=== PATIENT | male | born 1980 | race Caucasian/White ===

== ENCOUNTER 2017-05-08 19:03 | Emergency (ER) | payer OTHER ==
[~2017-05-08] VITALS: Ht 180.3 cm; Wt 127.0 kg
[~2017-05-08 19:03] MED LIST: AMOX1TAB11; HYDR-2758; HYDR-971 PO; LISI-338 PO; METH-37 PO; METH4TAB6; METO25TA4; METO25TA9 PO; NORT25CA; PRED20TA PO; SULF1TAB24 PO; TIZA4TAB; TRAZ50TA15 PO; WARF5TAB7; WARF7.5T48 PO
[2017-05-08 19:57] LABS: BASO # 0.1 x10^3/uL (0.0-0.2); BASO % 1 % (0-3); BILIRUBIN,URINE NEGATIVE (NEG); EOS % 1 % (0-3); GLUCOSE,URINE NEGATIVE (NEG); HEMATOCRIT 43.2 % (39.0-53.0); HEMOGLOBIN 14.7 g/dL (13.0-17.5); LYMPH # 2.4 x10^3/uL (1.0-4.8); LYMPH % 22 % (24-48); MEAN CORPUSCULAR HEMOGLOBIN 30 pg (25-35); MEAN CORPUSCULAR HGB CONC 34 g/dL (31-37); MEAN CORPUSCULAR VOLUME 89 fL (79-100); MONO % 7 % (0-9); NEUT % 70 % (31-73); NITRITE,URINE NEGATIVE (NEG); PLATELET COUNT 304 x10^3/uL (140-400); PROTEIN,URINE 100 mg/dL (NEG-TRACE); RED BLOOD COUNT 4.87 x10^6/uL (4.30-5.70); RED CELL DISTRIBUTION WIDTH 14.6 % (11.5-14.5); UROBILINOGEN,URINE 0.2 mg/dL (0.2 mg/dL); WHITE BLOOD COUNT 10.6 x10^3/uL (4.0-11.0)
[2017-05-08] MEDS ORDERED: HYDROmorphone 2 MG/ML VIAL IV ONE ×2 (20:00→22:30)
[2017-05-08] MEDS ORDERED: IV NORMAL SALINE 1000ML BAG 1,000 ML IV ONE (20:00)
[2017-05-08] MEDS ORDERED: ONDANSETRON PF 4 MG/2 ML VIAL. IV ONE ×2 (20:00→22:30)
[2017-05-08 20:07] LABS: BACTERIA,URINE 0 /HPF (0-FEW); SQUAMOUS EPITHELIAL CELL,UR FEW /LPF; WBC,URINE OCC /HPF (0-4)
[2017-05-08 20:08] LABS: CALCIUM 9.3 mg/dL (8.5-10.1); CREATININE 1.2 mg/dL (0.7-1.3); GFR 68.1; POTASSIUM 3.6 mmol/L (3.5-5.1)
--- NOTE | 2017-05-08 20:11 | PHYS DOC ---
Past Medical History Past Medical History: COPD, DVT, Hypertension, MRSA, Pneumonia, Other Additional Past Medical Histor: PE and DVT Past Surgical History: Other Additional Past Surgical Histo: MRSA WOUND REPAIR ON RIGHT ARM, R meniscus repair Alcohol Use: None Drug Use: None Adult General Chief Complaint Chief Complaint: ABDOMINAL PAIN HPI HPI Patient is a 36 year old male who presents with 5 day history of continuous epigastric pain dull moderate intensity some nausea, no vomiting or diarrhea no dysuria or frequency no flank pain; pain does not radiate through to the back; no chest pain or shortness of breath.. 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 Pains are associated with eating no black or bloody stools. He has been taking [id number] aspirin and ibuprofen and Tylenol with no improvement of symptoms. Review of Systems Review of Systems Constitutional: Denies fever or chills [] Eyes: Denies change in visual acuity, redness, or eye pain [] HENT: Denies nasal congestion or sore throat [] Respiratory: Denies cough or shortness of breath [] Cardiovascular: No additional information not addressed in HPI [] GI: , nausea, no vomiting, bloody stools or diarrhea [] : Denies dysuria or hematuria [] Musculoskeletal: Denies back pain or joint pain [] Integument: Denies rash or skin lesions [] Neurologic: Denies headache, focal weakness or sensory changes [] Endocrine: Denies polyuria or polydipsia [ Review of systems negative except as noted in the history of present illness] Current Medications Current Medications Current Medications Medications (Trade) Dose Ordered Sig/Mike Start Time Stop Time Status Last Admin Dose Admin Ceftriaxone Sodium 1 gm/ Sodium Chloride 50 ml @ 100 mls/hr Q24H 05/09/17 22:00 Ceftriaxone Sodium 50 ml @ 100 mls/hr 1X ONCE 05/08/17 22:00 05/08/17 22:29 DC 05/08/17 21:58 100 MLS/HR Hydromorphone HCl (Dilaudid) 1 mg 1X ONCE 05/08/17 22:30 05/08/17 22:31 DC Ondansetron HCl (Zofran) 4 mg 1X ONCE 05/08/17 22:30 05/08/17 22:31 DC Pantoprazole Sodium (Protonix Vial) 40 mg 1X ONCE 05/08/17 21:00 05/08/17 21:01 DC 05/08/17 21:20 40 MG Sodium Chloride 1,000 ml @ 1,000 mls/hr 1X ONCE 05/08/17 20:00 05/08/17 20:59 DC 05/08/17 20:20 1,000 MLS/HR Allergies Allergies Allergies Coded Allergies Type Severity Reaction Last Updated Verified Iodinated Contrast- Oral and IV Dye Allergy Unknown 05/08/17 Yes tramadol Adverse Reaction Intermediate nausea 02/05/16 Yes Physical Exam Physical Exam Constitutional: Well developed, well nourished, no acute distress, non-toxic appearance. [] HENT: Normocephalic, atraumatic, bilateral external ears normal, oropharynx moist, no oral exudates, nose normal. [] Eyes: PERRLA, EOMI, conjunctiva normal, no discharge. [] Neck: Normal range of motion, no tenderness, supple, no stridor. [] Cardiovascular:Heart rate regular rhythm, no murmur [] Lungs & Thorax: Bilateral breath sounds clear to auscultation [] Abdomen: Bowel sounds normal, soft, mild epigastric tenderness, no masses, no pulsatile masses. [] Skin: Warm, dry, no erythema, no rash. [] Back: No tenderness, no CVA tenderness. [] Extremities: No tenderness, no cyanosis, no clubbing, ROM intact, no edema. [] Neurologic: Alert and oriented X 3, normal motor function, normal sensory function, no focal deficits noted. [] Psychologic: Affect normal, judgement normal, mood normal. [] Current Patient Data Vital Signs Vital Signs Date Time Temp Pulse Resp B/P (MAP) Pulse Ox O2 Delivery O2 Flow Rate FiO2 05/08/17 20:54 20 98 Room Air 05/08/17 19:22 98.3 93 195/106 (135) 98.3 Lab Values Laboratory Tests Test 05/08/17 19:30 White Blood Count 10.6 x10^3/uL (4.0-11.0) Red Blood Count 4.87 x10^6/uL (4.30-5.70) Hemoglobin 14.7 g/dL (13.0-17.5) Hematocrit 43.2 % (39.0-53.0) Mean Corpuscular Volume 89 fL (79-100) Mean Corpuscular Hemoglobin 30 pg (25-35) Mean Corpuscular Hemoglobin Concent 34 g/dL (31-37) Red Cell Distribution Width 14.6 % (11.5-14.5) H Platelet Count 304 x10^3/uL (140-400) Neutrophils (%) (Auto) 70 % (31-73) Lymphocytes (%) (Auto) 22 % (24-48) L Monocytes (%) (Auto) 7 % (0-9) Eosinophils (%) (Auto) 1 % (0-3) Basophils (%) (Auto) 1 % (0-3) Neutrophils # (Auto) 7.4 x10^3uL (1.8-7.7) Lymphocytes # (Auto) 2.4 x10^3/uL (1.0-4.8) Monocytes # (Auto) 0.7 x10^3/uL (0.0-1.1) Eosinophils # (Auto) 0.1 x10^3/uL (0.0-0.7) Basophils # (Auto) 0.1 x10^3/uL (0.0-0.2) Urine Collection Type Unknown Urine Color Yellow Urine Clarity Clear Urine pH 5.0 Urine Specific [place] >=1.030 Urine Protein 100 mg/dL (NEG-TRACE) Urine Glucose (UA) Negative mg/dL (NEG) Urine Ketones (Stick) Negative mg/dL (NEG) Urine Blood Negative (NEG) Urine Nitrite Negative (NEG) Urine Bilirubin Negative (NEG) Urine Urobilinogen Dipstick 0.2 mg/dL (0.2 mg/dL) Urine Leukocyte Esterase Negative (NEG) Urine RBC 1-2 /HPF (0-2) Urine WBC Occ /HPF (0-4) Urine Squamous Epithelial Cells Few /LPF Urine Calcium Phosphate Crystals /HPF Urine Bacteria 0 /HPF (0-FEW) Urine Mucus Marked /LPF Sodium Level 139 mmol/L (136-145) Potassium Level 3.6 mmol/L (3.5-5.1) Chloride Level 101 mmol/L (98-107) Carbon Dioxide Level 25 mmol/L (21-32) Anion Gap 13 (6-14) Blood Urea Nitrogen 21 mg/dL (8-26) Creatinine 1.2 mg/dL (0.7-1.3) Estimated GFR (Cockcroft-Gault) 68.1 BUN/Creatinine Ratio 18 (6-20) Glucose Level 104 mg/dL (70-99) H Calcium Level 9.3 mg/dL (8.5-10.1) Total Bilirubin 0.7 mg/dL (0.2-1.0) Aspartate Amino Transferase (AST) 23 U/L (15-37) Alanine Aminotransferase (ALT) 48 U/L (16-63) Alkaline Phosphatase 88 U/L (46-116) Total Protein 8.1 g/dL (6.4-8.2) Albumin 4.1 g/dL (3.4-5.0) Albumin/Globulin Ratio 1.0 (1.0-1.7) Lipase 221 U/L (73-393) Laboratory Tests 05/08/17 19:30 Laboratory Tests 05/08/17 19:30 EKG EKG [] Radiology/Procedures Radiology/Procedures [] Course & Med Decision Making Course & Med Decision Making Pertinent Labs and Imaging studies reviewed. (See chart for details) Urine was slightly dirty we did give him Rocephin to treat that. Color sonogram was negative. Other labs were unremarkable including a normal white count and hemoglobin normal lipase and LFTs. I suspect the pain is from a gastritis or duodenitis and that he is stable based on clinical exam. There is no indication for CT scan or admission or surgical consultation at this time. Patient is very agreeable to this plan we've instructed him to avoid aspirin or ibuprofen we'll place him on a PPI, pain meds, nausea meds, and Carafate. I've asked that he increase his water intake since he works out of the heat. [Patient has a PCP in I recommended a follow-up in the next 2-3 days for reexamination consideration for upper endoscopy and if pain persists he'll definitely need a CT scan] Dragon Disclaimer Dragon Disclaimer This electronic medical record was generated, in whole or in part, using a voice recognition dictation system. Departure Departure Impression: Primary Impression: Acute abdominal pain Additional Impressions: Gastritis and duodenitis Dehydration Disposition: 01 HOME, SELF-CARE Condition: IMPROVED Referrals: ANGELICA KLINE (PCP) Patient Instructions: Abdominal Pain (Nonspecific), Dehydration, Adult, Easy-to -Read, Gastritis, Adult, [id number] Scripts Sucralfate (CARAFATE) 1 Gm Tablet 1 TAB PO QID for 14 Days, #56 TAB 0 Refills Prov: MARY KRISHNAMURTHY MD 05/08/17 Omeprazole Magnesium (PRILOSEC OTC) 20 Mg Tablet.dr 20 MG PO DAILY for 14 Days, #14 TAB 0 Refills Prov: MARY KRISHNAMURTHY MD 05/08/17 Oxycodone/Apap 5-325 (PERCOCET 5-325 MG TABLET) 1 Each Tablet 1-2 TAB PO Q4-6HRS for PAIN, #10 TAB 0 Refills Prov: MARY KRISHNAMURTHY MD 05/08/17 Ondansetron (ZOFRAN ODT) 4 Mg Tab.rapdis 1 TAB SL Q8HRS for NAUSEA, #8 TAB 0 Refills Prov: MARY KRISHNAMURTHY MD 05/08/17 Problem Qualifiers MARY KRISHNAMURTHY MD May 08, 2017 20:11
[2017-05-08 20:13] LABS: ALBUMIN 4.1 g/dL (3.4-5.0); TOTAL BILIRUBIN 0.7 mg/dL (0.2-1.0); TOTAL PROTEIN 8.1 g/dL (6.4-8.2)
[2017-05-08] MEDS ORDERED: PANTOPRAZOLE IV PUSH 40 MG VIAL. IVP ONE (21:00)
--- NOTE | 2017-05-08 21:41 | RAD ---
LIMITED ABDOMINAL ULTRASOUND History: Abdominal pain for 5 days. Comparison: CT abdomen and pelvis May 17, 2013. Procedure: Transabdominal ultrasound images are obtained. Findings: Visualized pancreas is unremarkable. Liver is mildly increased in echogenicity. No focal hepatic masses are identified. Right hepatic lobe measures 18.0 cm in length, at the upper limits of normal. Gallbladder has an unremarkable appearance. Common bile duct measures normally at 4 mm in diameter. Right kidney measures 10.7 cm in length. There is no evidence of stone or hydronephrosis. Visualized IVC demonstrates normal caliber. Impression: 1. Mildly echogenic liver, compatible with fatty liver disease. 2. Otherwise, unremarkable right upper quadrant abdominal ultrasound. Electronically signed by: Demetrius Hall MD (05/08/2017 9:38 PM)
[2017-05-08 22:30] VITALS: BP 171/99
[2017-05-08] MEDS ORDERED: SUCR1TAB35 PO (22:41)
[2017-05-08] MEDS ORDERED: OXYC-323 PO (22:41)
[2017-05-08] MEDS ORDERED: OMEP20TA63 PO (22:41)
[2017-05-08] MEDS ORDERED: ONDA4TAB10 SL (22:41)
== END 2017-05-08 22:58 | disposition home or self-care (01) ==
LOC: ER 19:03
DX: K29.70 Gastritis, unspecified, without bleeding (principal); K29.80 Duodenitis without bleeding; E86.0 Dehydration; J44.9 Chronic obstructive pulmonary disease, unspecified; I10 Essential (primary) hypertension; Z87.01 Personal history of pneumonia (recurrent); Z86.718 Personal history of other venous thrombosis and embolism; Z86.14 Personal history of Methicillin resistant Staphylococcus aureus infection; Z86.711 Personal history of pulmonary embolism; Z88.5 Allergy status to narcotic agent; Z91.041 Radiographic dye allergy status
CPT/HCPCS: 36415; 76705; 80053; 81001; 83690; 85027; 96361; 96365; 96375; 96376; 99285; C9113; J0690; J1170; J2405; J7030

== ENCOUNTER 2017-06-04 18:43 | Emergency (ER) | payer OTHER ==
[~2017-06-04] VITALS: Ht 185.4 cm; Wt 111.6 kg
[~2017-06-04 18:43] MED LIST changes: +OMEP20TA63 PO; +ONDA4TAB10 SL; +OXYC-323 PO; +SUCR1TAB35 PO
[2017-06-04 19:03] VITALS: BP 179/91
[2017-06-04] MEDS ORDERED: HYDROcodone/APAP 5/325MG 1 TAB TABLET PO ONE (19:30)
--- NOTE | 2017-06-04 20:07 | RAD ---
PQRS STATEMENT: One or more of the following in the visualized dose reduction techniques were utilized for this study: 1. Automatic exposure control, 2. Adjustment of the mA and/or kV according to patient size, 3. Use of iterative reconstruction technique CT LUMBAR SPINE INDICATION: worsening low back pain s/p pain injection on Friday, no priors TECHNIQUE: 2.5 mm contiguous axial images were obtained from the thoracolumbar junction through the sacrum in both bone and soft tissue algorithm. Additional sagittal and coronal reconstructions were also performed. FINDINGS: Vertebral body height and alignment is maintained. Lumbar lordosis is preserved. No acute fractures are seen. The bony canal is patent throughout. There is a disc protrusion at the level of L4-L5 which causes at least moderate central spinal stenosis. Sacroiliac joints are within normal limits. Paraspinous soft tissues are unremarkable. Visualized intra-abdominal contents are unremarkable. IMPRESSION: Negative for lumbar spine fracture. There is at least moderate stenosis of the spinal canal at L4-L5. Electronically signed by: Jose G Mayer MD (06/04/2017 8:04 PM) [facility]
--- NOTE | 2017-06-04 20:27 | PHYS DOC ---
Past Medical History Past Medical History: COPD, DVT, Hypertension, MRSA, Pneumonia, Other Additional Past Medical Histor: PE and DVT Past Surgical History: Other Additional Past Surgical Histo: MRSA WOUND REPAIR ON RIGHT ARM, R meniscus repair Alcohol Use: None Drug Use: None Adult General Chief Complaint Chief Complaint: LOWER BACK PAIN OR INJURY HPI HPI Patient is a 36 year old L presents to the emergency department with complaints of exacerbation of his chronic low back pain. He states that one week ago he received an epidural in his had increasing pain since that time. He has not called his pain management physician at [facility] for further evaluation. He's had no loss of function of lower extremities. No numbness or tingling to lower extremity. No fever. Review of Systems Review of Systems Constitutional: Denies fever or chills [] Eyes: Denies change in visual acuity, redness, or eye pain [] HENT: Denies nasal congestion or sore throat [] Respiratory: Denies cough or shortness of breath [] Cardiovascular: No additional information not addressed in HPI [] GI: Denies abdominal pain, nausea, vomiting, bloody stools or diarrhea [] : Denies dysuria or hematuria [] Musculoskeletal: Back pain Integument: Denies rash or skin lesions [] Neurologic: Denies headache, focal weakness or sensory changes [] Endocrine: Denies polyuria or polydipsia [] Current Medications Current Medications Current Medications Medications (Trade) Dose Ordered Sig/Mike Start Time Stop Time Status Last Admin Dose Admin Acetaminophen/ Hydrocodone Bitart (Lortab 5/325) 1 tab 1X ONCE 06/04/17 19:30 06/04/17 19:31 DC 06/04/17 19:31 1 TAB Allergies Allergies Allergies Coded Allergies Type Severity Reaction Last Updated Verified Iodinated Contrast- Oral and IV Dye Allergy Unknown 05/08/17 Yes tramadol Adverse Reaction Intermediate nausea 02/05/16 Yes Physical Exam Physical Exam Constitutional: Well developed, well nourished, no acute distress, non-toxic appearance. [] HENT: Normocephalic, atraumatic, bilateral external ears normal, oropharynx moist, no oral exudates, nose normal. [] Eyes: PERRLA, EOMI, conjunctiva normal, no discharge. [] Neck: Normal range of motion, no tenderness, supple, no stridor. [] Cardiovascular:Heart rate regular rhythm, no murmur [] Lungs & Thorax: Bilateral breath sounds clear to auscultation [] Abdomen: Bowel sounds normal, soft, no tenderness, no masses, no pulsatile masses. [] Skin: Warm, dry, no erythema, no rash. [] Back: Side of epidural without erythema or ecchymosis. There is mild swelling. He is diffusely tender to palpate in the lumbar region. Negative straight raise leg test. No saddle anesthesia. His muscle strength is 5 over 5, DTRs 2 over 4. Extremities: No tenderness, no cyanosis, no clubbing, ROM intact, no edema. [] Neurologic: Alert and oriented X 3, normal motor function, normal sensory function, no focal deficits noted. [] Psychologic: Affect normal, judgement normal, mood normal. [] Current Patient Data Vital Signs Vital Signs Date Time Temp Pulse Resp B/P (MAP) Pulse Ox O2 Delivery O2 Flow Rate FiO2 06/04/17 19:31 18 Room Air 06/04/17 19:03 98.2 100 97 98.2 EKG EKG [] Radiology/Procedures Radiology/Procedures [][facility] [address] [place] [address] IMAGING REPORT Signed PATIENT: TUNDE GARDNER ACCOUNT: [id number] : 1980 LOCATION: ER AGE: 36 SEX: M EXAM STATUS: REG ER ORD. PHYSICIAN: ELISABETH OLIVA APRN REASON: pain after epidural injuection, numbness LE PROCEDURE: CT LUMBAR SPINE WO CONTRAST PQRS STATEMENT: One or more of the following in the visualized dose reduction techniques were utilized for this study: 1. Automatic exposure control, 2. Adjustment of the mA and/or kV according to patient size, 3. Use of iterative reconstruction technique CT LUMBAR SPINE INDICATION: worsening low back pain s/p pain injection on Friday, no priors TECHNIQUE: 2.5 mm contiguous axial images were obtained from the thoracolumbar junction through the sacrum in both bone and soft tissue algorithm. Additional sagittal and coronal reconstructions were also performed. FINDINGS: Vertebral body height and alignment is maintained. Lumbar lordosis is preserved. No acute fractures are seen. The bony canal is patent throughout. There is a disc protrusion at the level of L4-L5 which causes at least moderate central spinal stenosis. Sacroiliac joints are within normal limits. Paraspinous soft tissues are unremarkable. Visualized intra-abdominal contents are unremarkable. IMPRESSION: Negative for lumbar spine fracture. There is at least moderate stenosis of the spinal canal at L4-L5. Electronically signed by: Jose G Mayer MD (06/04/2017 8:04 PM) [facility] DICTATED and SIGNED BY: JOSE G MAYER MD DATE: 06/04/171999 CC: ANGELICA KLINE; NON,STAFF; ELISABETH OLIVA APRN ~ Course & Med Decision Making Course & Med Decision Making Pertinent Labs and Imaging studies reviewed. (See chart for details) [] Dragon Disclaimer Dragon Disclaimer This electronic medical record was generated, in whole or in part, using a voice recognition dictation system. Departure Departure Impression: Primary Impression: Chronic back pain Disposition: HOME, SELF-CARE Condition: STABLE Referrals: ANGELICA KLINE (PCP) Patient Instructions: Chronic Back Pain Additional Instructions: Follow-up with your pain management physician tomorrow. ELISABETH OLIVA APRN Jun 04, 2017 20:27
== END 2017-06-04 20:32 | disposition home or self-care (01) ==
LOC: ER 18:43
DX: M54.5 Low back pain (principal); G89.29 Other chronic pain; I10 Essential (primary) hypertension; J44.9 Chronic obstructive pulmonary disease, unspecified; M48.06 Spinal stenosis, lumbar region; Z86.718 Personal history of other venous thrombosis and embolism; Z86.711 Personal history of pulmonary embolism; Z86.14 Personal history of Methicillin resistant Staphylococcus aureus infection; Z91.041 Radiographic dye allergy status; Z88.6 Allergy status to analgesic agent
CPT/HCPCS: 72131; 99284-25

== ENCOUNTER 2017-07-23 10:06 | Emergency (ER) | payer OTHER ==
[~2017-07-23] VITALS: Ht 185.4 cm; Wt 112.0 kg
--- NOTE | 2017-07-23 10:21 | PHYS DOC ---
Past Medical History Past Medical History: COPD, DVT, Hypertension, MRSA, Pneumonia, Other Additional Past Medical Histor: PE and DVT Past Surgical History: Other Additional Past Surgical Histo: MRSA WOUND REPAIR ON RIGHT ARM, R meniscus repair Alcohol Use: None Drug Use: None Adult General Chief Complaint Chief Complaint: FLANK PAIN [facility] HPI Patient is a 36 year old male presents to the emergency department with a history of left scrotal pain that radiates to the left flank. Patient states the pain woke him up. He states the pain is a burning sensation. He states he has had nausea however denies vomiting. Patient denies fever, chills. Review of Systems Review of Systems Constitutional: Denies fever or chills [] Eyes: Denies change in visual acuity, redness, or eye pain [] HENT: Denies nasal congestion or sore throat [] Respiratory: Denies cough or shortness of breath [] Cardiovascular: No additional information not addressed in HPI [] GI: Denies abdominal pain, nausea, vomiting, bloody stools or diarrhea [] : Denies dysuria or hematuria. Left scrotal pain that radiates to the left flank area. Musculoskeletal: Denies back pain or joint pain [] Integument: Denies rash or skin lesions [] Neurologic: Denies headache, focal weakness or sensory changes [] Endocrine: Denies polyuria or polydipsia [] Current Medications Current Medications Current Medications Medications (Trade) Dose Ordered Sig/[facility] Start Time Stop Time Status Last Admin Dose Admin Ketorolac Tromethamine (Toradol) 30 mg 1X ONCE 07/23/17 10:30 07/23/17 10:31 DC 07/23/17 10:45 30 MG Ondansetron HCl (Zofran) 4 mg 1X ONCE 07/23/17 10:30 07/23/17 10:31 DC 07/23/17 10:45 4 MG Sodium Chloride 1,000 ml @ 1,000 mls/hr 1X ONCE 07/23/17 10:30 07/23/17 11:29 DC 07/23/17 10:47 1,000 MLS/HR Allergies Allergies Allergies Coded Allergies Type Severity Reaction Last Updated Verified Iodinated Contrast- Oral and IV Dye Allergy Intermediate 07/23/17 Yes tramadol Adverse Reaction Intermediate nausea 07/23/17 Yes Physical Exam Physical Exam Constitutional: Well developed, well nourished, no acute distress, non-toxic appearance. [] HENT: Normocephalic, atraumatic, bilateral external ears normal, oropharynx moist, no oral exudates, nose normal. [] Eyes: PERRLA, EOMI, conjunctiva normal, no discharge. [] Neck: Normal range of motion, no tenderness, supple, no stridor. [] Cardiovascular:Heart rate regular rhythm, no murmur [] Lungs & Thorax: Bilateral breath sounds clear to auscultation [] Abdomen: Bowel sounds hypoactive, soft, no tenderness, no masses, no pulsatile masses. No guarding, no rebound tenderness noted. Skin: Warm, dry, no erythema, no rash. [] Back: No tenderness, left CVA tenderness. [] Extremities: No tenderness, no cyanosis, no clubbing, ROM intact, no edema. [] Neurologic: Alert and oriented X 3, normal motor function, normal sensory function, no focal deficits noted. [] Psychologic: Affect normal, judgement normal, mood normal. [] Current Patient Data Vital Signs Vital Signs Date Time Temp Pulse Resp B/P (MAP) Pulse Ox O2 Delivery O2 Flow Rate FiO2 07/23/17 10:22 97.7 63 18 148/85 (106) 98 Room Air 97.7 Lab Values Laboratory Tests Test 07/23/17 10:30 07/23/17 10:42 Urine Collection Type Unknown Urine Color Yellow Urine Clarity Clear Urine pH 5.0 Urine Specific [place] 1.020 Urine Protein Negative mg/dL (NEG-TRACE) Urine Glucose (UA) Negative mg/dL (NEG) Urine Ketones (Stick) Negative mg/dL (NEG) Urine Blood Large (NEG) Urine Nitrite Negative (NEG) Urine Bilirubin Negative (NEG) Urine Urobilinogen Dipstick 0.2 mg/dL (0.2 mg/dL) Urine Leukocyte Esterase Negative (NEG) Urine RBC 11-20 /HPF (0-2) Urine WBC Rare /HPF (0-4) Urine Squamous Epithelial Cells Occ /LPF Urine Bacteria Few /HPF (0-FEW) Urine Mucus Slight /LPF White Blood Count 7.9 x10^3/uL (4.0-11.0) Red Blood Count 4.40 x10^6/uL (4.30-5.70) Hemoglobin 13.7 g/dL (13.0-17.5) Hematocrit 39.2 % (39.0-53.0) Mean Corpuscular Volume 89 fL (79-100) Mean Corpuscular Hemoglobin 31 pg (25-35) Mean Corpuscular Hemoglobin Concent 35 g/dL (31-37) Red Cell Distribution Width 14.0 % (11.5-14.5) Platelet Count 286 x10^3/uL (140-400) Neutrophils (%) (Auto) 76 % (31-73) H Lymphocytes (%) (Auto) 16 % (24-48) L Monocytes (%) (Auto) 6 % (0-9) Eosinophils (%) (Auto) 1 % (0-3) Basophils (%) (Auto) 1 % (0-3) Neutrophils # (Auto) 6.1 x10^3uL (1.8-7.7) Lymphocytes # (Auto) 1.3 x10^3/uL (1.0-4.8) Monocytes # (Auto) 0.5 x10^3/uL (0.0-1.1) Eosinophils # (Auto) 0.1 x10^3/uL (0.0-0.7) Basophils # (Auto) 0.1 x10^3/uL (0.0-0.2) Sodium Level 141 mmol/L (136-145) Potassium Level 4.0 mmol/L (3.5-5.1) Chloride Level 104 mmol/L (98-107) Carbon Dioxide Level 27 mmol/L (21-32) Anion Gap 10 (6-14) Blood Urea Nitrogen 20 mg/dL (8-26) Creatinine 1.0 mg/dL (0.7-1.3) Estimated GFR (Cockcroft-Gault) 84.1 BUN/Creatinine Ratio 20 (6-20) Glucose Level 103 mg/dL (70-99) H Calcium Level 9.4 mg/dL (8.5-10.1) Total Bilirubin Pending Aspartate Amino Transferase (AST) Pending Alanine Aminotransferase (ALT) Pending Alkaline Phosphatase Pending Total Protein Pending Albumin Pending Albumin/Globulin Ratio Pending Laboratory Tests 07/23/17 10:42 Laboratory Tests 07/23/17 10:42 EKG EKG [] Radiology/Procedures Radiology/Procedures [[facility] [address] [place] [address] IMAGING REPORT Signed PATIENT: TUNDE GARDNER ACCOUNT: [id number] : 1980 LOCATION: ER AGE: 36 SEX: M EXAM STATUS: PRE ER ORD. PHYSICIAN: ELIZABETH GONSALEZ APRN REASON: scrotal pain that radiates into right flank pain PROCEDURE: CT ABDOMEN PELVIS WO CONTRAST Exam performed: CT abdomen pelvis without contrast. History: Left flank pain. Date of service: Scrotal pain radiating to the left flank. Date of service: 07/23/17. Comparison: CT abdomen pelvis from 06/16/13. Technique: Contiguous helical acquisitions are obtained through the abdomen and pelvis without IV contrast. Sagittal and coronal reformatted images are obtained and reviewed. Findings: There is a 2.5 mm calculus in the distal left ureter, almost at the vesicoureteral junction causing mild proximal hydroureteronephrosis. Lung bases are essentially clear. The visualized heart is normal. Lack of IV contrast limits evaluation of abdominal viscera, however the liver, gallbladder, spleen and pancreas are normal. Both adrenal glands and bilateral kidneys are normal in size. Tiny nonobstructing right renal calculi are seen. Aorta is normal in caliber. The small and large bowel loops are nondilated and unremarkable. Appendix is normal. No inflammatory changes in the right lower quadrant. The urinary bladder is decompressed. The prostate gland, seminal vesicles and the rectum appear normal. Impression: 2.5 mm calculus in the distal left ureter causing mild proximal hydroureteronephrosis. Nonobstructing tiny right renal calculi PQRS Compliance Statement: One or more of the following individualized dose reduction techniques were utilized for this examination: 1. Automated exposure control 2. Adjustment of the mA and/or kV according to patient size 3. Use of iterative reconstruction technique DICTATED and SIGNED BY: MAGGIE NAILS MD DATE: 07/23/17 1048 CC: ANGELICA KLINE; ELIZABETH GONSALEZ APRN ~ ] Course & Med Decision Making Course & Med Decision Making Pertinent Labs and Imaging studies reviewed. (See chart for details) Patient was provided with IV fluids, toradol and zofran for pain which did decrease the pain level. CBC, CMP are normal. Patient's urine was positive for large amount of blood. No infection noted. CT scan identified a 2.5 mm kidney stone on the left. Patient was provided with lab results as well as CT results. Patient will be placed on Flomax and be provided with hydrocodone and Zofran for pain control and nausea vomiting. Patient was instructed hydrocodone will cause drowsiness do not take any be alert and oriented. Recommended drink plenty of fluids. Patient does state that he has a urologist in which she seen in the past. Recommended straining all urine's. Recommended that if he obtains a stone to make sure that he takes it to his urology appointment. Patient will be discharged home in stable condition all questions and concerns been answered at patient's bedside. Signs and symptoms to return back to emergency prior has been provided. [] Dragon Disclaimer Dragon Disclaimer This electronic medical record was generated, in whole or in part, using a voice recognition dictation system. Departure Departure Impression: Primary Impression: Kidney stone Disposition: HOME, SELF-CARE Condition: STABLE Referrals: ANGELICA KLINE (PCP) Patient Instructions: Kidney Stones, [id number] Additional Instructions: Activity as tolerated. Medications as prescribed. Hydrocodone will cause drowsiness do not take any be alert and oriented. Drink plenty of fluids. Follow-up with your urologist within the next week. Strain all urine. Return back to emergency prior signs symptoms of become worse. Scripts Ondansetron (ZOFRAN ODT) 4 Mg Tab.rapdis 1 TAB SL Q8HRS, #10 TAB Prov: ELIZABETH GONSALEZ APRN 07/23/17 Hydrocodone/Apap 5-325 (NORCO 5-325 TABLET) 1 Each Tablet 1 TAB PO PRN Q6HRS Y for PAIN, #20 TAB 0 Refills Prov: ELIZABETH GONSALEZ APRN 07/23/17 Tamsulosin Hcl (FLOMAX) 0.4 Mg Cap.er.24h 1 CAP PO DAILY, #30 CAP 1 Refill Prov: ELIZABETH GONSALEZ APRN 07/23/17 ELIZABETH GONSALEZ APRN Jul 23, 2017 10:21
[2017-07-23] MEDS ORDERED: KETOROLAC TROMETHAMINE 30 MG/ML INJ. IV ONE (10:30)
[2017-07-23] MEDS ORDERED: IV NORMAL SALINE 1000ML BAG 1,000 ML IV ONE (10:30)
[2017-07-23] MEDS ORDERED: ONDANSETRON PF 4 MG/2 ML VIAL. IV ONE (10:30)
[2017-07-23 10:50] LABS: BILIRUBIN,URINE NEGATIVE (NEG); GLUCOSE,URINE NEGATIVE (NEG); NITRITE,URINE NEGATIVE (NEG); PROTEIN,URINE NEGATIVE (NEG-TRACE); UROBILINOGEN,URINE 0.2 mg/dL (0.2 mg/dL)
--- NOTE | 2017-07-23 10:57 | RAD ---
Exam performed: CT abdomen pelvis without contrast. History: Left flank pain. Date of service: Scrotal pain radiating to the left flank. Date of service: 07/23/17. Comparison: CT abdomen pelvis from 06/16/13. Technique: Contiguous helical acquisitions are obtained through the abdomen and pelvis without IV contrast. Sagittal and coronal reformatted images are obtained and reviewed. Findings: There is a 2.5 mm calculus in the distal left ureter, almost at the vesicoureteral junction causing mild proximal hydroureteronephrosis. Lung bases are essentially clear. The visualized heart is normal. Lack of IV contrast limits evaluation of abdominal viscera, however the liver, gallbladder, spleen and pancreas are normal. Both adrenal glands and bilateral kidneys are normal in size. Tiny nonobstructing right renal calculi are seen. Aorta is normal in caliber. The small and large bowel loops are nondilated and unremarkable. Appendix is normal. No inflammatory changes in the right lower quadrant. The urinary bladder is decompressed. The prostate gland, seminal vesicles and the rectum appear normal. Impression: 2.5 mm calculus in the distal left ureter causing mild proximal hydroureteronephrosis. Nonobstructing tiny right renal calculi PQRS Compliance Statement: One or more of the following individualized dose reduction techniques were utilized for this examination: 1. Automated exposure control 2. Adjustment of the mA and/or kV according to patient size 3. Use of iterative reconstruction technique
[2017-07-23 11:03] LABS: BASO # 0.1 x10^3/uL (0.0-0.2); BASO % 1 % (0-3); EOS % 1 % (0-3); HEMATOCRIT 39.2 % (39.0-53.0); HEMOGLOBIN 13.7 g/dL (13.0-17.5); LYMPH # 1.3 x10^3/uL (1.0-4.8); LYMPH % 16 % (24-48); MEAN CORPUSCULAR HEMOGLOBIN 31 pg (25-35); MEAN CORPUSCULAR HGB CONC 35 g/dL (31-37); MEAN CORPUSCULAR VOLUME 89 fL (79-100); MONO % 6 % (0-9); NEUT % 76 % (31-73); PLATELET COUNT 286 x10^3/uL (140-400); WHITE BLOOD COUNT 7.9 x10^3/uL (4.0-11.0)
[2017-07-23 11:09] LABS: BACTERIA,URINE FEW /HPF (0-FEW); SQUAMOUS EPITHELIAL CELL,UR OCC /LPF; WBC,URINE RARE /HPF (0-4)
[2017-07-23 11:10] VITALS: BP 133/78
[2017-07-23 11:22] LABS: CALCIUM 9.4 mg/dL (8.5-10.1); GFR 84.1
[2017-07-23 11:30] LABS: ALBUMIN 3.8 g/dL (3.4-5.0); TOTAL BILIRUBIN 0.7 mg/dL (0.2-1.0); TOTAL PROTEIN 7.6 g/dL (6.4-8.2)
[2017-07-23] MEDS ORDERED: ONDA4TAB10 SL (11:33)
[2017-07-23] MEDS ORDERED: HYDR-971 PO (11:33)
[2017-07-23] MEDS ORDERED: TAMS0.4C97 PO (11:33)
== END 2017-07-23 11:50 | disposition home or self-care (01) ==
LOC: ER 10:06
DX: N20.0 Calculus of kidney (principal); N50.82 Scrotal pain; R11.0 Nausea; J44.9 Chronic obstructive pulmonary disease, unspecified; I10 Essential (primary) hypertension; Z86.718 Personal history of other venous thrombosis and embolism; Z86.14 Personal history of Methicillin resistant Staphylococcus aureus infection; Z86.711 Personal history of pulmonary embolism; Z88.6 Allergy status to analgesic agent; Z91.041 Radiographic dye allergy status
CPT/HCPCS: 36415; 74176; 80053; 81001; 85025; 96361; 96374; 96375; 99285; J1885; J2405; J7030

== ENCOUNTER 2017-08-26 09:53 | Emergency (ER) | payer OTHER ==
[~2017-08-26] VITALS: Ht 185.4 cm; Wt 108.9 kg
[~2017-08-26 09:53] MED LIST changes: +METO-239 PO; -METO25TA9 PO; +TAMS0.4C97 PO
[2017-08-26 10:00] VITALS: BP 171/102
[2017-08-26] MEDS ORDERED: BACI3.5O8 OS (10:32)
[2017-08-26] MEDS ORDERED: SULF1TAB24 PO (10:32)
--- NOTE | 2017-08-26 10:32 | PHYS DOC ---
Past Medical History Past Medical History: COPD, DVT, Hypertension, MRSA, Pneumonia, Other Additional Past Medical Histor: PE and DVT, back pain Past Surgical History: Other Additional Past Surgical Histo: MRSA WOUND REPAIR ON RIGHT ARM, R meniscus repair Alcohol Use: None Drug Use: None Adult General Chief Complaint Chief Complaint: SKIN PROBLEM HPI HPI Patient is a 36 year old -year-old male with a history of staph infections that presents the ED complaining of bumps to bilateral forearms x 1 week. Bumps are around his hair follicles and a couple abrasions. States that abrasions are from where he has been scratching because it itches. 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 Denies scabies infection, fever, trauma, headache, chest pain, shortness of breath, arm swelling. Review of Systems Review of Systems Constitutional: Denies fever or chills [] Eyes: Denies change in visual acuity, redness, or eye pain [] HENT: Denies nasal congestion or sore throat [] Respiratory: Denies cough or shortness of breath [] Cardiovascular: No additional information not addressed in HPI [] GI: Denies abdominal pain, nausea, vomiting, bloody stools or diarrhea [] : Denies dysuria or hematuria [] Musculoskeletal: Denies back pain or joint pain [] Integument: Denies rash or skin lesions [] Neurologic: Denies headache, focal weakness or sensory changes [] Endocrine: Denies polyuria or polydipsia [] Allergies Allergies Allergies Coded Allergies Type Severity Reaction Last Updated Verified Iodinated Contrast- Oral and IV Dye Allergy Intermediate 07/23/17 Yes Penicillins Allergy Unknown N/V 08/26/17 Yes Physical Exam Physical Exam Constitutional: Well developed, well nourished, no acute distress, non-toxic appearance. [] HENT: Normocephalic, atraumatic, bilateral external ears normal, oropharynx moist, no oral exudates, nose normal. [] Eyes: PERRLA, EOMI, conjunctiva normal, no discharge. [] Neck: Normal range of motion, no tenderness, supple, no stridor. [] Cardiovascular:Heart rate regular rhythm, no murmur [] Lungs & Thorax: Bilateral breath sounds clear to auscultation [] Abdomen: Bowel sounds normal, soft, no tenderness, no masses, no pulsatile masses. [] Skin: Warm, dry. FOLLICULITIS TO BILATERAL DORSAL FOREARMS.[] Back: No tenderness, no CVA tenderness. [] Extremities: No tenderness, no cyanosis, no clubbing, ROM intact, no edema. [] Neurologic: Alert and oriented X 3, normal motor function, normal sensory function, no focal deficits noted. [] Psychologic: Affect normal, judgement normal, mood normal. [] Current Patient Data Vital Signs Vital Signs Date Time Temp Pulse Resp B/P (MAP) Pulse Ox O2 Delivery O2 Flow Rate FiO2 08/26/17 10:00 98.2 73 20 96 Room Air 98.2 EKG EKG [] Radiology/Procedures Radiology/Procedures [] Course & Med Decision Making Course & Med Decision Making Pertinent Labs and Imaging studies reviewed. (See chart for details) []States he had improvement using oral antibiotics with previously infection. Will treat with Bactrim and bacitracin for topical use. Discussed symptomatic treatment and follow-up. Discussed reasons to return to the ED. Patient understands and agrees with plan. Dragon Disclaimer Dragon Disclaimer This electronic medical record was generated, in whole or in part, using a voice recognition dictation system. Departure Departure Impression: Primary Impression: Folliculitis Disposition: 01 HOME, SELF-CARE Condition: STABLE Referrals: ANGELICA KLINE (PCP) Patient Instructions: Folliculitis Scripts Bacitracin (BACITRACIN) 3.5 Gm Oint...g. 1 JUANJO OS TID, #3.5 GM Prov: TAHIR LANDRY 08/26/17 Sulfamethoxazole/Trimethoprim (BACTRIM DS TABLET) 1 Each Tablet 1 TAB PO BID, #20 TAB Prov: TAHIR LANDRY 08/26/17 TAHIR LANDRY Aug 26, 2017 10:32
== END 2017-08-26 10:53 | disposition home or self-care (01) ==
LOC: ER 09:53
DX: L73.9 Follicular disorder, unspecified (principal); J44.9 Chronic obstructive pulmonary disease, unspecified; I10 Essential (primary) hypertension; Z88.0 Allergy status to penicillin; Z86.14 Personal history of Methicillin resistant Staphylococcus aureus infection; Z86.718 Personal history of other venous thrombosis and embolism; Z87.01 Personal history of pneumonia (recurrent); Z91.041 Radiographic dye allergy status
CPT/HCPCS: 99283

== ENCOUNTER → 2017-11-21 | Outpatient (CLI) | payer OTHER | END | disposition home or self-care (01) | LOC: KCIC MRI 16:03 | DX: M47.896 Other spondylosis, lumbar region (principal); M48.061 Spinal stenosis, lumbar region without neurogenic claudication; M54.16 Radiculopathy, lumbar region; K60.2 Anal fissure, unspecified; R60.0 Localized edema | CPT/HCPCS: 72148 ==

== ENCOUNTER → 2017-12-30 | Outpatient (CLI) | payer OTHER ==
[~2017-12-30] MED LIST changes: -AMOX1TAB11; +BACITRACIN 50,000 UNIT in IV NORMAL SALINE 1000ML BAG 1,000 ML IRR; -HYDR-2758; -HYDR-971 PO; -LISI-338 PO; -METH-37 PO; -METH4TAB6; -METO-239 PO; -METO25TA4; -NORT25CA; -OMEP20TA63 PO; -ONDA4TAB10 SL; -OXYC-323 PO; -PRED20TA PO; -SUCR1TAB35 PO; -SULF1TAB24 PO; -TAMS0.4C97 PO; -TIZA4TAB; -TRAZ50TA15 PO; -WARF5TAB7; -WARF7.5T48 PO
== END | disposition home or self-care (01) ==
LOC: RAD 11:23
DX: M43.16 Spondylolisthesis, lumbar region (principal)
CPT/HCPCS: 72110

== ENCOUNTER 2018-06-20 17:26 | Emergency (ER) | payer OTHER ==
[2018-06-20] MEDS: DIPHTH,PERTUSS(ACELL),TET TOX 0.5 ML DISP.SYRIN. VAX IM (18:20)
[2018-06-20] MEDS: oxyCODONE/APAP 5/325 1 TAB TABLET PO (18:20)
== END 2018-06-20 19:38 | disposition home or self-care (01) ==
LOC: ER 19:38
DX: S80.12XA Contusion of left lower leg, initial encounter (principal); Z86.718 Personal history of other venous thrombosis and embolism; Z86.711 Personal history of pulmonary embolism; Z88.0 Allergy status to penicillin; Z91.041 Radiographic dye allergy status; W16.122A Fall into natural body of water striking bottom causing other injury, initial encounter; Y93.39 Activity, other involving climbing, rappelling and jumping off; Y92.828 Other wilderness area as the place of occurrence of the external cause; Y99.8 Other external cause status
CPT/HCPCS: 73562; 73590; 73610; 90471; 90715; 99284-25

== ENCOUNTER 2019-04-02 00:38 | Emergency (ER) | payer OTHER ==
[~2019-04-02] VITALS: Ht 185.4 cm; Wt 122.5 kg
[~2019-04-02 00:38] MED LIST changes: +AMOX1TAB11; +BACI3.5O8 OS; -BACITRACIN 50,000 UNIT in IV NORMAL SALINE 1000ML BAG 1,000 ML IRR; +DICY20TA3 PO; +HYDR-2761; +HYDR-2761 PO; +HYDR-3164 PO; +IBUP-1060 PO; +LISI-338 PO; +METH-37 PO; +METH4TAB6; +METO-239 PO; +METO25TA4; +NORT25CA; +OMEP20TA63 PO; +ONDA4TAB10 SL; +OXYC1TAB15 PO; +PRED20TA PO; +SUCR1TAB35 PO; +SULF1TAB24 PO; +TAMS0.4C97 PO; +TIZA4TAB; +TRAZ-118 PO; +WARF-31; +WARF7.5T48 PO
[2019-04-02 00:45] VITALS: BP 161/102
--- NOTE | 2019-04-02 00:58 | PHYS DOC ---
Past Medical History Past Medical History: Diabetes-Type II, Hypertension Additional Past Medical Histor: PE and DVT, back pain Past Surgical History: Other Additional Past Surgical Histo: R.KNEE Smoking: Quit Greater Than 1 Year Alcohol Use: Occasionally Drug Use: None Adult General Chief Complaint Chief Complaint: ANKLE PROBLEM HPI HPI Patient is a 38 year old male who presents with left ankle injury following stepping into a pothole and inverting his left foot 3 days ago. He states that he has tried ice packs, heating pads, Tylenol and ibuprofen all with minimal relief. Pain is greatest at the dorsal aspect of his left foot as well as the lateral malleolus. He states the dorsal aspect of his foot has been bruised since yesterday. Since the injury, he has continued to walk on the extremity a fair amount. Pain is rated at 7/10 currently and he states when walking on the extremity he notes a pain shooting up the lateral aspect of his left leg. Patient does have a history of thromboembolism and that he was treated with anticoagulation but is no longer on blood thinners. He is concerned that his calf feels similar to his prior DVT. Patient denies chest pain, shortness of breath, hemoptysis at this time. Review of Systems Review of Systems Constitutional: Denies fever or chills [] HENT: Denies nasal congestion or sore throat [] Respiratory: Denies cough, shortness of breath or hemoptysis [] Cardiovascular: Denies chest pain or palpitations [] GI: Denies abdominal pain or nausea [] Musculoskeletal: Reports left foot, ankle and leg pain [] Integument: Reports tick bikes over LE b/l; denies erythema or ecchymosis Neurologic: Denies focal weakness or paresthesias [] Complete review of systems found to be within normal limits, except as documented in this note. Allergies Allergies Allergies Coded Allergies Type Severity Reaction Last Updated Verified Iodinated Contrast- Oral and IV Dye Allergy Intermediate 07/23/17 Yes Penicillins Allergy Unknown N/V 08/26/17 Yes Physical Exam Physical Exam Constitutional: Well developed, well nourished, no acute distress, non-toxic appearance. [] HENT: Normocephalic, atraumatic. [] Eyes: EOMI, conjunctiva normal, no discharge. [] Cardiovascular:Heart rate regular rhythm, no murmur [] Lungs & Thorax: Bilateral breath sounds clear to auscultation [] Abdomen: Soft and nontender [] Skin: Warm and dry with scabbed over insect bites over b/l LE [] Back: No tenderness, no CVA tenderness. [] Extremities: Left ankle swollen compared to right with ecchymosis over dorsum of left foot. Dorsal aspect of left foot exquisitely tender to palpation. Left lateral malleolus tender to palpation without ecchymosis. No joint laxity. Tenderness to palpation along lateral aspect of left leg along fibula. Cap refill < 2 seconds b/l LE [] Neurologic: Alert and oriented, sensation grossly intact b/l LE. [] Psychologic: Affect normal, judgement normal, mood normal. [] Current Patient Data Vital Signs Vital Signs Date Time Temp Pulse Resp B/P (MAP) Pulse Ox O2 Delivery O2 Flow Rate FiO2 04/02/19 00:45 97.5 71 20 161/102 (121) 97 Room Air 97.5 EKG EKG [] Radiology/Procedures Radiology/Procedures PROCEDURE: VENOUS LOWER EXTREMITY LEFT Examination: Left Lower Extremity Venous Doppler Ultrasound History: Left ankle pain, swelling Comparison: None Procedure: Grant scale, color flow 2D and spectal waveform analysis images are obtained with and without compression in the area of the common femoral vein, superficial femoral vein - femoral vein junction, main femoral vein (superficial femoral vein) and popliteal vein. Veins of the proximal calf are also imaged. Findings: There is normal duplex flow, color flow and compressibility of all visualized vein segments. No evidence of deep venous thrombus is present. Impression: No evidence of DVT in the left lower extremity venous system. Electronically signed by: Curtis Norman MD (04/02/2019 1:58 AM) [id number][] Left Tibia Fibula, 3 View Left Foot, 3 View Left Ankle: Osteophyte formation at tibiotalar and talonavicular joint indicative of osteoarthritis. No evidence of acute osseous deformity or fracture. Preliminary interpretation by ED Physician. Course & Med Decision Making Course & Med Decision Making Pertinent Imaging studies reviewed. (See chart for details) Patient is a 38 year old male who presents with 3 days of left ankle pain following an inversion ankle injury while stepping in a pothole. Patient has a history of DVT and felt that his calf swelling was similar to that prior experience. Lower extremity US showed no evidence of DVT. X-ray of tibia fibula, ankle and foot showed no evidence of acute osseous deformity or fracture. Osteophyte formation seen in tibiotalar and talonavicular joint indicative of osteoarthritis. AUGUSTO wrap and ankle air splint applied. Patient will be discharged with crutches and instructed to avoid weight bearing on ankle, apply cold packs and elevate frequently. Will provide Rx for Tylenol #3. Patient stable for discharge with outpatient follow-up with PCP/Orthopedics. Orthopedic referral provided. Discussed findings and plan with patient, who acknowledge understanding and agreement. [] Dragon Disclaimer Dragon Disclaimer This electronic medical record was generated, in whole or in part, using a voice recognition dictation system. Splinting Splinting : Location: Left ankle Pre-Made Type: Augusto bandage and Ankle air splint Pre-Proc Neuro Vasc Exam: normal Post-Proc Neuro Vasc Exam: normal, unchanged from pre-exam Departure Departure Impression: Primary Impression: Ankle sprain Disposition: 01 HOME, SELF-CARE Condition: STABLE Referrals: ANGELICA KLINE (PCP) DAVE HDZ II, MD Patient Instructions: Crutch Use, [id number], Foot Sprain Additional Instructions: Use over the counter Tylenol and Ibuprofen for pain or discomfort. Scripts Acetaminophen With Codeine (TYLENOL WITH CODEINE #3 TABLET) 1 Each Tablet 1 TAB PO PRN Q6HRS PRN for PAIN, #10 TAB Prov: DANETTE TRUJILLO DO 04/02/19 Problem Qualifiers Primary Impression: Ankle sprain Encounter type: initial encounter Involved ligament of ankle: unspecified ligament Laterality: left Qualified Codes: S93.402A - Sprain of unspecified ligament of left ankle, initial encounter DANETTE TRUJILLO DO April 02, 2019 00:58
--- NOTE | 2019-04-02 02:01 | RAD ---
Examination: Left Lower Extremity Venous Doppler Ultrasound History: Left ankle pain, swelling Comparison: None Procedure: Grant scale, color flow 2D and spectal waveform analysis images are obtained with and without compression in the area of the common femoral vein, superficial femoral vein - femoral vein junction, main femoral vein (superficial femoral vein) and popliteal vein. Veins of the proximal calf are also imaged. Findings: There is normal duplex flow, color flow and compressibility of all visualized vein segments. No evidence of deep venous thrombus is present. Impression: No evidence of DVT in the left lower extremity venous system. Electronically signed by: Curtis Norman MD (04/02/2019 1:58 AM) [facility]
[2019-04-02] MEDS ORDERED: ACET-704 PO (02:02)
--- NOTE | 2019-04-02 08:17 | RAD ---
Examination: ANKLE LEFT 3V, FOOT LEFT 3V, TIBIA FIBULA LEFT History: Pain, injury Comparison/Correlation: None Findings: Frontal and lateral views of the left tibia and fibula were obtained. Review left ankle x-ray exams performed. Three-view left foot x-ray exam was performed. Joint spaces about the knee are unremarkable. Proximal tibia and proximal fibula are unremarkable. Spurring along the dorsal aspect of the navicular bone proximally is present. Bony densities subjacent to the medial malleolus which appears represent accessory ossicles or possibly sequela of previous trauma noted. No acute process definitely suspected although mild soft tissue swelling is evident. Osteochondral lesion involving the medial talar dome is large measuring 1.2 cm transverse by 0.9 cm longitudinal. Displaced fracture fragment is not definitely seen. Irregularity of the epiphyseal contour at the site of this osteochondral lesion noted. Accessory ossicle along the anterior aspect of the distal tibial epiphysis noted. Joint spaces of the foot are unremarkable. No radiopaque foreign body. Impression: Large osteochondral lesion of the medial talar dome. No definite fracture fragment although deformity of the contour of the talar dome at this site is present. Bony densities subjacent to the medial malleolus noted and these may represent sequela of previous trauma. No definite acute process. Electronically signed by: Pérez Borges MD (04/02/2019 8:15 AM) [id number]
== END 2019-04-02 02:15 | disposition home or self-care (01) ==
LOC: ER 00:38
DX: S93.402A Sprain of unspecified ligament of left ankle, initial encounter (principal); S90.31XA Contusion of right foot, initial encounter; I10 Essential (primary) hypertension; E11.9 Type 2 diabetes mellitus without complications; Z86.711 Personal history of pulmonary embolism; Z86.718 Personal history of other venous thrombosis and embolism; Z87.891 Personal history of nicotine dependence; Z88.0 Allergy status to penicillin; Z91.041 Radiographic dye allergy status; X50.9XXA Other and unspecified overexertion or strenuous movements or postures, initial encounter; Y93.89 Activity, other specified; Y92.89 Other specified places as the place of occurrence of the external cause; Y99.8 Other external cause status
CPT/HCPCS: 73590; 73610; 73630; 93971; 99284

== ENCOUNTER 2019-06-06 19:50 | Emergency (ER) | payer OTHER ==
[~2019-06-06] VITALS: Ht 177.8 cm; Wt 122.5 kg
[~2019-06-06 19:50] MED LIST changes: +ACET-704 PO
[2019-06-06 20:00] VITALS: BP 159/84
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
[2019-06-06] MEDS ORDERED: ALBU2.5V8 INH (21:07)
--- NOTE | 2019-06-06 21:51 | RAD ---
AP chest x-ray HISTORY: Shortness of breath. FINDINGS: Azygos lobe at the right apex. Heart size normal. Mediastinum unremarkable. Calcified granulomas right lung base. No pneumothorax, pulmonary opacities or pleural effusions. Bones are unremarkable. IMPRESSION: No acute process. Electronically signed by: Kirk Fernández MD (06/06/2019 9:48 PM) [facility]
--- NOTE | 2019-06-07 08:42 | EKG ---
[facility] [address] [place] [address] Test Date: 2019-06-06 Test Time: 20:02:10 Pat Name: TUNDE GARDNER Department: Room: Gender: M Machine Installer: : 1980 Requested By: ANDREWS ZEPEDA Order Number: [id number] Reading MD: Measurements Intervals [place] Rate: 77 P: 58 NH: 182 QRS: 25 QRSD: 92 T: 18 QT: 368 QTc: 418 Interpretive Statements SINUS RHYTHM NORMAL ECG No previous ECG available for comparison
== END 2019-06-06 21:16 | disposition home or self-care (01) ==
LOC: ER 19:50
DX: T17.898A Other foreign object in other parts of respiratory tract causing other injury, initial encounter (principal); I10 Essential (primary) hypertension; E11.9 Type 2 diabetes mellitus without complications; J44.9 Chronic obstructive pulmonary disease, unspecified; Z87.891 Personal history of nicotine dependence; Z88.0 Allergy status to penicillin; Z91.041 Radiographic dye allergy status; X58.XXXA Exposure to other specified factors, initial encounter; Y93.89 Activity, other specified; Y92.89 Other specified places as the place of occurrence of the external cause; Y99.8 Other external cause status
CPT/HCPCS: 71045; 93005; 99284

== ENCOUNTER 2019-06-24 13:39 | Emergency (ER) | payer OTHER ==
[~2019-06-24] VITALS: Ht 185.4 cm; Wt 126.1 kg
[~2019-06-24 13:39] MED LIST changes: +ALBU2.5V8 INH; -TIZA4TAB; +TIZA4TAB2
[2019-06-24 15:35] VITALS: BP 148/93
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
== END 2019-06-24 16:15 | disposition home or self-care (01) ==
LOC: ER 13:39
DX: L55.1 Sunburn of second degree (principal); J44.9 Chronic obstructive pulmonary disease, unspecified; E11.9 Type 2 diabetes mellitus without complications; I10 Essential (primary) hypertension; Z86.718 Personal history of other venous thrombosis and embolism
CPT/HCPCS: 99281

== ENCOUNTER 2019-08-02 16:43 | Emergency (ER) | payer OTHER ==
[~2019-08-02] VITALS: Ht 185.4 cm; Wt 127.0 kg
[2019-08-02 17:14] VITALS: BP 172/90
--- NOTE | 2019-08-02 17:16 | PHYS DOC ---
Past Medical History Past Medical History: No Pertinent History Additional Past Medical Histor: PE and DVT, back pain Past Surgical History: Other Additional Past Surgical Histo: meniscus Alcohol Use: None Drug Use: None Adult General Chief Complaint Chief Complaint: FACE PROBLEM HPI HPI Patient is a 38 year old male who presents to the ED today complaining of left upper cheek swelling that he noted this morning when he woke up. Denies any fever or trismus. Denies any injury. Review of Systems Review of Systems Constitutional: Denies fever or chills [] HENT: Reports left upper cheek swelling. Denies nasal congestion or sore throat [] Musculoskeletal: Denies back pain or joint pain [] Integument: Denies rash or skin lesions [] Neurologic: Denies headache, focal weakness or sensory changes [] All other systems were reviewed and found to be within normal limits, except as documented in this note. Allergies Allergies Allergies Coded Allergies Type Severity Reaction Last Updated Verified Iodinated Contrast- Oral and IV Dye Allergy Intermediate 07/23/17 Yes Penicillins Allergy Unknown N/V 08/26/17 Yes Physical Exam Physical Exam Constitutional: Well developed, well nourished, no acute distress, non-toxic appearance. [] HENT: Normocephalic, atraumatic, bilateral external ears normal, oropharynx moist, no oral exudates, nose normal. [] Left upper cheek with small amount of soft tissue swelling suspicious of a dental abscess. Left upper gum approximately tooth #10 and 11 are broken and decayed. Gum erythema noted. No fluctuance noted on the gum Skin: Warm, dry, no erythema, no rash. [] Back: No tenderness, no CVA tenderness. [] Extremities: No tenderness, no cyanosis, no clubbing, ROM intact, no edema. [] Neurologic: Alert and oriented X 3, normal motor function, normal sensory function, no focal deficits noted. [] Psychologic: Affect normal, judgement normal, mood normal. [] Current Patient Data Vital Signs Vital Signs Date Time Temp Pulse Resp B/P (MAP) Pulse Ox O2 Delivery O2 Flow Rate FiO2 08/02/19 17:14 97.9 69 20 172/90 (117) 97 Room Air 97.9 EKG EKG [] Radiology/Procedures Radiology/Procedures [] Course & Med Decision Making Course & Med Decision Making Pertinent Labs and Imaging studies reviewed. (See chart for details) This is a 38-year-old male patient who presents to the ED today with a dental abscess. Discharged on clindamycin. Follow-up with her dentist as soon as he can Isaías Disclaimer Isaías Disclaimer This electronic medical record was generated, in whole or in part, using a voice recognition dictation system. Departure Departure Impression: Primary Impression: Abscess, dental Disposition: HOME, SELF-CARE Condition: STABLE Referrals: ANGELICA KLINE (PCP) Follow-up with her dentist in 1 week Patient Instructions: Dental Abscess Additional Instructions: You were seen for dental abscess causing facial swelling. Take the prescribed antibiotics until completed. Take the pain medicine as needed. Please follow-up with her dentist in the next 1-2 weeks. Scripts Clindamycin Hcl (CLINDAMYCIN HCL) 300 Mg Capsule 1 CAP PO TID, #21 CAP Prov: CASSIE HERNANDEZ APRN 08/02/19 Diclofenac Potassium (DICLOFENAC POTASSIUM) 50 Mg Tablet 1 TAB PO BID, #20 TAB 0 Refills Prov: CASSIE HERNANDEZ APRN 08/02/19 CASSIE HERNANDEZ APRN Aug 02, 2019 17:16
[2019-08-02] MEDS ORDERED: DICL50TA2 PO (17:25)
[2019-08-02] MEDS ORDERED: CLIN300C8 PO (17:25)
== END 2019-08-02 17:35 | disposition home or self-care (01) ==
LOC: ER 16:43
DX: K04.7 Periapical abscess without sinus (principal); Z86.711 Personal history of pulmonary embolism; Z86.718 Personal history of other venous thrombosis and embolism; Z88.0 Allergy status to penicillin; Z91.041 Radiographic dye allergy status
CPT/HCPCS: 99283

== ENCOUNTER 2019-12-28 23:31 | Emergency (ER) | payer OTHER ==
[~2019-12-28] VITALS: Ht 185.4 cm; Wt 127.3 kg
[~2019-12-28 23:31] MED LIST changes: +CLIN300C8 PO; +DICL50TA2 PO
[2019-12-28 23:50] VITALS: BP 166/92
[2019-12-29] MEDS ORDERED: HYDR-2759 PO (00:51)
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
== END 2019-12-29 01:05 | disposition home or self-care (01) ==
LOC: ER 23:31
DX: R10.32 Left lower quadrant pain (principal); I25.2 Old myocardial infarction; G89.11 Acute pain due to trauma; Z86.718 Personal history of other venous thrombosis and embolism; Z86.711 Personal history of pulmonary embolism; Z88.0 Allergy status to penicillin; Z91.041 Radiographic dye allergy status; Y08.89XA Assault by other specified means, initial encounter; Y93.89 Activity, other specified; Y92.69 Other specified industrial and construction area as the place of occurrence of the external cause; Y99.0 Civilian activity done for income or pay
CPT/HCPCS: 99283